=== PATIENT | male | born 1990 | race Caucasian/White ===

== ENCOUNTER 2020-01-16 21:27 | Emergency (ER) | payer SELFPAY ==
[2020-01-16 21:30] VITALS: BP 139/77; PULSE 85; RESP 16; TEMP 36.1; O2SAT 100
[2020-01-16] MEDS: RABIES VACCINE (RABAVERT) 2.5 UNITS VIAL IM (22:42)
--- NOTE | 2020-01-16 22:51 | ED.GENADULT ---
HPI - General Adult General Chief complaint: Unspecified Stated complaint: Bat Bite Time Seen by Provider: 01/16/20 21:40 Source: patient Mode of arrival: ambulatory Limitations: no limitations History of Present Illness HPI narrative: 29-year-old with no medical problems here with complaints of Bat bite to his right thumb . pt states he was removing a board and was accidently bit .He states he is very nervous. Onset (ago): hour(s) (1) Location: upper extremity (right thumb) Related Data Allergies Allergy/AdvReac Type Severity Reaction Status Date / Time No Known Allergies Allergy Mild Verified 02/24/09 14:48 Review of Systems Review of Systems: All systems reviewed & are unremarkable except as noted in HPI and below Constitutional: Constitutional: Reports no additional constitutional complaints Eyes: Eyes: Reports no additional eye complaints ENT: Reports system reviewed and no additional complaints, except as documented Cardiovascular: Cardiovascular: Reports no additional cardiovascular complaints Respiratory: Respiratory: Reports no additional respiratory complaints Gastrointestinal: Gastrointestinal: Reports no additional gastrointestinal complaints Musculoskeletal: Musculoskeletal: Reports no additional musculoskeletal complaints PMFSH Social History Social History Smoking status: Never smoker Alcohol intake: current Exam Narrative: Exam Narrative: GENERAL: Well-appearing, well-nourished, and in no acute distress. HEAD: Normocephalic, atraumatic. EYES: PERRLA and EOMI. NECK: Supple. EXTREMITIES: Normal range of motion. No edema ,has small dark spot on the tip of the thumb. SKIN: Warm, dry, no rash. NEURO: No focal deficits. Alert and oriented x3. PSYCH: Normal mood and affect. Course Course Emergency Course: First dose of immunoglobulin and rabies vaccination was given here in the ER. Patient is advised to follow-up with Edelmira Mcgee for further vaccination. Vital Signs Vital signs: Vital Signs Temperature 36.1 C L 01/16/20 21:30 Pulse Rate 85 01/16/20 21:30 Respiratory Rate 16 01/16/20 21:30 Blood Pressure 139/77 01/16/20 21:30 Pulse Oximetry 100 01/16/20 21:30 Temperature 36.1 C L 01/16/20 21:30 Pulse Rate 85 01/16/20 21:30 Respiratory Rate 16 01/16/20 21:30 Blood Pressure 139/77 01/16/20 21:30 Pulse Oximetry 100 01/16/20 21:30 Medical Decision Making Vital Signs Vital Signs: Vital Signs Temperature 36.1 C L 01/16/20 21:30 Pulse Rate 85 01/16/20 21:30 Respiratory Rate 16 01/16/20 21:30 Blood Pressure 139/77 01/16/20 21:30 Pulse Oximetry 100 01/16/20 21:30 Temperature 36.1 C L 01/16/20 21:30 Pulse Rate 85 01/16/20 21:30 Respiratory Rate 16 01/16/20 21:30 Blood Pressure 139/77 01/16/20 21:30 Pulse Oximetry 100 01/16/20 21:30 Discharge Plan Discharge Clinical Impression: Bat bite of finger Qualifiers: Encounter type: initial encounter Qualified Code(s): S61.259A - Open bite of unspecified finger without damage to nail, initial encounter Patient Disposition: Home, Self-Care Condition: Stable Instructions: Antibiotic Form, Animal Bite (ED) Additional Instructions: You are advised to contact her infectious disease nurse Ms. Edelmira Mcgee at [phone] Follow-up/Referrals: PHYSICIAN,PATENT COUNSEL [Primary Care Provider] - Niles Farrell MD [Physician] - Time of Disposition: 22:58
[2020-01-16 23:10] VITALS: BP 134/79; PULSE 82; RESP 16; TEMP 36.2; O2SAT 99
== END 2020-01-16 23:11 | disposition home or self-care (01) ==
PROVIDERS: Emergency Provider Family Medicine; Referring Provider Emergency Medicine
DX: S61.051A Open bite of right thumb without damage to nail, initial encounter (principal); Z23 Encounter for immunization; Z29.14 Encounter for prophylactic rabies immune globulin; W55.81XA Bitten by other mammals, initial encounter
CPT/HCPCS: 90375; 90471; 90675; 96372; 99283

== ENCOUNTER 2020-01-19 09:50 | Emergency (ER) | payer SELFPAY ==
[2020-01-19 09:57] VITALS: BP 130/90; PULSE 67; RESP 18; TEMP 36.6; O2SAT 98
[2020-01-19] MEDS: RABIES VACCINE (RABAVERT) 2.5 UNITS VIAL IM (11:03)
--- NOTE | 2020-01-19 12:02 | ED.GENADULT ---
HPI - General Adult General Chief complaint: Unspecified Stated complaint: needs rabies vaccine Time Seen by Provider: 01/19/20 10:08 Source: patient Mode of arrival: ambulatory Limitations: no limitations History of Present Illness HPI narrative: Patient is a 29-year-old male who presents to emergency department for evaluation of needing rabies vaccine who presented for the first shots to include immunoglobulin vaccine was not given the follow-up dates has been working with the infectious disease nurse at [place] and it is now set up for him to return on [id number] to see the nurse to receive the remaining vaccines will be given 1 today was bit by a bat in the right index finger. Patient denies any other complaints or concerns at this time Related Data Home Medications Medication Instructions Recorded Confirmed No Home Medications 01/19/20 01/19/20 Allergies Allergy/AdvReac Type Severity Reaction Status Date / Time No Known Allergies Allergy Mild Verified 01/19/20 09:59 Review of Systems Review of Systems: All systems reviewed & are unremarkable except as noted in HPI and below PMFSH Social History Social History Smoking status: Never smoker Alcohol intake: current Gender identity (if verbalized by the patient): Male Exam Narrative: Exam Narrative: GENERAL: Well-appearing, well-nourished, and in no acute distress. HEAD: Normocephalic, atraumatic. EYES: PERRLA and EOMI. ENT: Nares clear, no rhinorrhea or epistaxis. Mucous membranes moist. EXTREMITIES: Normal range of motion. No edema. SKIN: Warm, dry, no rash. NEURO: No focal deficits. Alert and oriented x3. Neurovascularly intact PSYCH: Normal mood and affect. Course Course Emergency Course: Patient in the room in no distress aware of case findings treatment plan diagnosis given follow-up dates Vital Signs Vital signs: Vital Signs Temperature 97.8 F 01/19/20 09:57 Pulse Rate 67 01/19/20 09:57 Respiratory Rate 18 01/19/20 09:57 Blood Pressure 130/90 01/19/20 09:57 Pulse Oximetry 98 01/19/20 09:57 Temperature 97.8 F 01/19/20 09:57 Pulse Rate 67 01/19/20 09:57 Respiratory Rate 18 01/19/20 09:57 Blood Pressure 130/90 01/19/20 09:57 Pulse Oximetry 98 01/19/20 09:57 Medical Decision Making MDM Narrative Medical decision making narrative: Patient will return on the continuing days for vaccine felt appropriate for outpatient reevaluation patient understands this Vital Signs Vital Signs: Vital Signs Temperature 97.8 F 01/19/20 09:57 Pulse Rate 67 01/19/20 09:57 Respiratory Rate 18 01/19/20 09:57 Blood Pressure 130/90 01/19/20 09:57 Pulse Oximetry 98 01/19/20 09:57 Temperature 97.8 F 01/19/20 09:57 Pulse Rate 67 01/19/20 09:57 Respiratory Rate 18 01/19/20 09:57 Blood Pressure 130/90 01/19/20 09:57 Pulse Oximetry 98 01/19/20 09:57 Discharge Plan Discharge Clinical Impression: Visit for wound check Patient Disposition: Home, Self-Care Condition: Stable Instructions: Antibiotic Form, Rabies Vaccine (By injection) Additional Instructions: Follow-up with infectious disease nurse on 01/22 and 01/29 for additional vaccine Prescriptions: No Action No Home Medications RF: 0 Follow-up/Referrals: PHYSICIAN,FIGURE REFINISHER AND REPAIRER [Primary Care Provider] - Erna Agustin DO [Physician] -
== END 2020-01-19 12:18 | disposition home or self-care (01) ==
PROVIDERS: Emergency Provider Emergency Medicine
DX: Z29.14 Encounter for prophylactic rabies immune globulin (principal); Z23 Encounter for immunization
CPT/HCPCS: 90471; 90675; 99282

== ENCOUNTER 2020-01-30 07:49 | Outpatient (RCR) | payer SELFPAY | END 2020-04-22 23:59 | disposition home or self-care (01) | LOC: ANHLAB 07:49 | PROVIDERS: Visit Provider Emergency Medicine Emergency Medical Services | DX: Z20.3 Contact with and (suspected) exposure to rabies (principal) | CPT/HCPCS: 90471; 90675 ==